=== PATIENT | male | born 2000 | race Two or more races ===

== ENCOUNTER 2023-09-18 18:07 | Emergency (ER) | payer OTHER ==
[~2023-09-18] VITALS: Ht 190.5 cm; Wt 95.5 kg
[2023-09-18 18:34] VITALS: BP 111/45; PULSE 63; RESP 14; O2SAT 99
== END 2023-09-18 21:07 | disposition left against medical advice (07) ==
LOC: ER 18:07
DX: A64 Unspecified sexually transmitted disease (principal); Z53.21 Procedure and treatment not carried out due to patient leaving prior to being seen by health care provider